=== PATIENT | female | born 1980 | race Hispanic/Latino ===

== ENCOUNTER 2018-05-31 09:35 | Observation (INO) | payer MEDICAID, OTHER ==
[2018-05-31 10:14] LABS: BILIRUBIN,URINE Negative (NEGATIVE); COLOR,URINE Yellow (YELLOW); GLUCOSE, URINE (UA) Negative (NEGATIVE); KETONES,URINE Negative (NEGATIVE); LEUKOCYTE ESTERASE ,URINE Moderate (NEGATIVE); NITRATE,URINE Negative (NEGATIVE); OCCULT BLOOD,URINE Small (NEGATIVE); PH,URINE 6.5 (5.0-8.0); PROTEIN,URINE Negative (NEGATIVE)
[2018-05-31 10:19] LABS: APPEARANCE,URINE SLIGHTLY CLOUDY (CLEAR)
[2018-05-31 10:32] LABS: BACTERIA,URINE Moderate /HPF (None Seen)
== END 2018-05-31 18:55 | disposition home or self-care (01) ==
LOC: EDH 09:35 → LDH 09:45
PROVIDERS: ADMIT Internal Medicine; ATTEND Internal Medicine
DX: O36.8130 Decreased fetal movements, third trimester, not applicable or unspecified (principal); O09.523 Supervision of elderly multigravida, third trimester; Z3A.28 28 weeks gestation of pregnancy
CPT/HCPCS: 81001; 99284; G0378 ×9

== ENCOUNTER 2018-06-26 13:32 | Observation (INO) | payer MEDICAID ==
[~2018-06-26] VITALS: Ht 154.9 cm; Wt 109.3 kg
[2018-06-26 14:12] LABS: APPEARANCE,URINE Clear (CLEAR); BILIRUBIN,URINE Negative (NEGATIVE); COLOR,URINE Yellow (YELLOW); GLUCOSE, URINE (UA) Negative (NEGATIVE); KETONES,URINE Negative (NEGATIVE); LEUKOCYTE ESTERASE ,URINE Large (NEGATIVE); NITRATE,URINE Negative (NEGATIVE); OCCULT BLOOD,URINE Small (NEGATIVE); PH,URINE 6.5 (5.0-8.0); PROTEIN,URINE Negative (NEGATIVE)
[2018-06-26 14:18] LABS: BACTERIA,URINE Moderate /HPF (None Seen); SQUAMOUS EPITHELIAL CELL,UR Moderate /HPF (0-2)
[2018-06-26] MEDS ORDERED: TERBUTALINE SULFATE VIAL 1MG/ML SQ ONE ×2 (16:21→17:15)
== END 2018-06-26 17:32 | disposition home or self-care (01) ==
LOC: EDH 13:32 → LDH 13:33
PROVIDERS: ADMIT Internal Medicine; ATTEND Internal Medicine
DX: O26.893 Other specified pregnancy related conditions, third trimester (principal); R10.30 Lower abdominal pain, unspecified; O09.523 Supervision of elderly multigravida, third trimester; Z3A.31 31 weeks gestation of pregnancy
CPT/HCPCS: 81001; 99284; G0378 ×4; J3105; J7120; 96360; 96372

== ENCOUNTER 2018-07-17 00:08 | Observation (INO) | payer MEDICAID ==
[~2018-07-17] VITALS: Ht 154.9 cm; Wt 112.9 kg
[2018-07-17] MEDS ORDERED: LACTATED RINGERS 1000ML 1,000 ML IV PRN (00:25)
[2018-07-17 00:44] LABS: BILIRUBIN,URINE Negative (NEGATIVE); COLOR,URINE Yellow (YELLOW); GLUCOSE, URINE (UA) Negative (NEGATIVE); KETONES,URINE Negative (NEGATIVE); LEUKOCYTE ESTERASE ,URINE Large (NEGATIVE); NITRATE,URINE Negative (NEGATIVE); OCCULT BLOOD,URINE Moderate (NEGATIVE); PROTEIN,URINE Negative (NEGATIVE); UROBILINOGEN,URINE 0.2 mg/dL (0.2-1.0)
[2018-07-17 00:51] LABS: APPEARANCE,URINE SLIGHTLY CLOUDY (CLEAR)
[2018-07-17 00:56] LABS: AMPHET/METH SCREEN,URINE NEGATIVE (NEGATIVE); BARBITURATE SCREEN, URINE NEGATIVE (NEGATIVE); BENZODIAZEPINES SCREEN,URINE NEGATIVE (NEGATIVE); CANNABINOID SCREEN,URINE NEGATIVE (NEGATIVE); COCAINE SCREEN,URINE NEGATIVE (NEGATIVE); OPIATE SCREEN,URINE NEGATIVE (NEGATIVE); PHENCYCLIDINE SCREEN,URINE NEGATIVE (NEGATIVE)
[2018-07-17] MEDS ORDERED: LACTATED RINGERS 1000ML 1,000 ML IV ONE (01:05)
[2018-07-17 01:15] LABS: BACTERIA,URINE Many /HPF (None Seen)
[2018-07-17] MEDS ORDERED: TERBUTALINE SULFATE VIAL 1MG/ML SQ SCH (01:15)
== END 2018-07-17 03:40 | disposition home or self-care (01) ==
LOC: EDH 00:08 → LDH 00:09
PROVIDERS: ADMIT Obstetrics & Gynecology; ATTEND Obstetrics & Gynecology
DX: O60.03 Preterm labor without delivery, third trimester (principal); O09.523 Supervision of elderly multigravida, third trimester; Z3A.34 34 weeks gestation of pregnancy; Z79.899 Other long term (current) drug therapy
CPT/HCPCS: 80305; 81001; 96372; 99284; G0378 ×4; J3105; J7120; 96360; 96361

== ENCOUNTER 2019-02-08 23:12 | Emergency (ER) | payer BC, MEDICAID, OTHER ==
[~2019-02-08 23:12] MED LIST: FERR-82 PO; PNV1TABL17 PO
[2019-02-08] MEDS ORDERED: ACETAMINOPHEN EXTRA STRENGTH 500 MG TABLET ONE (23:51)
== END 2019-02-09 00:53 | disposition home or self-care (01) ==
LOC: EDH 23:12
DX: L03.116 Cellulitis of left lower limb (principal)
CPT/HCPCS: 76882

== ENCOUNTER 2024-02-06 22:23 | Emergency (ER) | payer BC ==
[~2024-02-06] VITALS: Ht 152.4 cm; Wt 96.6 kg
[2024-02-06 23:14] VITALS: TEMP 98.4
[2024-02-06 23:15] LABS: APPEARANCE,URINE CLEAR (CLEAR); BILIRUBIN,URINE NEGATIVE (NEGATIVE); COLOR,URINE LIGHT-YELLOW (YELLOW); GLUCOSE, URINE (UA) NEGATIVE (NEGATIVE); KETONES,URINE NEGATIVE (NEGATIVE); LEUKOCYTE ESTERASE ,URINE 75 Leu/uL (NEGATIVE); NITRATE,URINE NEGATIVE (NEGATIVE); OCCULT BLOOD,URINE MODERATE (NEGATIVE); PH,URINE 6.5 (5.0-8.0); PROTEIN,URINE 10 mg/dL (NEGATIVE); UROBILINOGEN,URINE 0.2 mg/dL (0.2-1.0)
[2024-02-06 23:26] LABS: ADD UA MICROSCOPIC YES
[2024-02-06 23:37] LABS: BACTERIA,URINE RARE /HPF (None Seen); MUCUS,URINE RARE LPF (None Seen); RBC,URINE 26-50 /HPF (0-1); SQUAMOUS EPITHELIAL CELL,UR FEW /HPF (0-2); WBC,URINE 26-50 /HPF (0-1)
[2024-02-06 23:45] LABS: HEMATOCRIT 42.6 % (36-48); MEAN CORPUSCULAR HEMOGLOBIN 30.7 pg (27.0-33.0); MEAN CORPUSCULAR HGB CONC 32.9 g/dL (32.0-36.0); MEAN CORPUSCULAR VOLUME 93.4 fL (79-99); RED BLOOD CELL COUNT(AUTO) 4.56 MIL/uL (4.00-5.50); RED CELL DISTRIBUTION WIDTH 13.2 % (11.0-15.5); WHITE BLOOD COUNT (AUTO) 10.5 K/uL (4.8-10.8)
[2024-02-06 23:53] LABS: CREATININE 0.8 mg/dL (0.5-1.0); POTASSIUM 3.5 mmol/L (3.5-5.1)
[2024-02-06] MEDS: CYCLOBENZAPRINE HCL 10 MG TABLET PO ONE (23:57)
[2024-02-06] MEDS: ketOROlac 15MG/ML VIAL (15MG/ML) IM ONE (23:57)
[2024-02-07] MEDS: cefTRIAXone 1G VIAL IVPB ONE (00:29)
[2024-02-07] MEDS: LIDOCAINE 4% ADH..PATCH TP ONE (00:47)
[2024-02-07] MEDS: morPHINE 4 MG SYG IVP ONE (01:03)
[2024-02-07] MEDS ORDERED: SULF1TAB42 PO (01:37)
[2024-02-07] MEDS ORDERED: CYCL10TA16 PO (01:37)
[2024-02-07 01:52] VITALS: BP 108/60; PULSE 78; RESP 18; O2SAT 98
== END 2024-02-07 02:01 | disposition home or self-care (01) ==
LOC: EDH 22:23
DX: M62.830 Muscle spasm of back (principal); E11.9 Type 2 diabetes mellitus without complications; Z79.899 Other long term (current) drug therapy
CPT/HCPCS: 99284; 80048; 85027; 87086 ×2; 87186; 81001; 81025; 36415; 72100; 96372; 96365; 96375; J1885; J0696; J2270